=== PATIENT | male | born 1960 | race Caucasian/White ===

== ENCOUNTER 2018-06-12 07:45 | Outpatient (CLI) | payer BC ==
[2018-06-12] MEDS ORDERED: Iopamidol 370 76% 100 ML VIAL ONE (07:54)
--- NOTE | 2018-06-12 12:24 | CT ---
CT ANGIOGRAM ABDOMEN AND PELVIS WITH BILATERAL LOWER EXTREMITY RUNOFF WITH IV CONTRAST AND 3D MIP REC ONSTRUCTIONS: Date: 06/12/18 PROVIDED CLINICAL HISTORY: Abnormal ultrasound of the legs, claudication. FINDINGS: The visualized lung bases are free of significant opacity. Calcifications are noted in the pancreatic head compatible with sequelae of prior pancreatitis. The solid abdominal organs are suboptimally lucien luated in the arterial phase of contrast but demonstrate an otherwise unremarkable CT appearance. The re is no bowel dilatation, inflammatory fat stranding, free fluid, or lymph node enlargement apparent . A moderate to large left hydrocele is seen. The abdominal aorta appears nonaneurysmal. There is moderate multifocal soft and hard plaque involvin g the abdominal aorta, with some irregular soft plaque present at the lateral margin of the distal ab dominal aorta. There is no evidence for significant stenosis involving celiac, superior mesenteric, m ain, or left accessory renal or inferior mesenteric arteries. There is long segment calcified stenosi s involving the mid to distal right renal artery, at least moderate. There is ectasia of the proximal right common iliac artery measuring about 1.6 cm. There is prominent multifocal calcified and noncalcified atherosclerotic plaque involving both common iliac arteries wi th moderate distal stenosis on the right and several areas of moderate-severe stenosis involving the left distal common iliac artery. There is high grade stenosis involving the proximal left external il iac artery due to a combination of hard and soft plaque. There is calcified atherosclerotic plaque in volving proximal right external iliac artery without significant stenosis. Multifocal calcified steno ses involve each internal iliac artery. On the right, the common femoral and profunda femoral arteries demonstrate no significant stenosis. T here is a moderate calcified and noncalcified short segment stenosis involving the proximal right sup erficial femoral artery at the level of the lesser trochanter. No additional significant SFA stenosis is seen on the right. No significant popliteal stenosis is seen on the right. The right anterior tib ial and peroneal arteries appear opacified to the level of the ankle. The right posterior tibial vic ry is not opacified distal to the mid foreleg and is reconstituted by branches of the peroneal at the ankle. On the left, the common femoral, profunda femoral, and superficial femoral arteries demonstrate no si gnificant stenosis. Mild multifocal proximal stenosis involving left popliteal artery. The left anter ior tibial, posterior tibial, and peroneal arteries appear opacified to the level of the ankle. The a nterior tibial and posterior tibial arteries appear opacified to the level of the foot. IMPRESSION: 1. Extensive atherosclerotic vascular disease as described above. 2. Moderate left hydrocele. POS: DAVID
== END 2018-06-12 07:46 | disposition home or self-care (01) ==
LOC: CT 07:45
PROVIDERS: ATTEND Thoracic Surgery (Cardiothoracic Vascular Surgery)
DX: I70.213 Atherosclerosis of native arteries of extremities with intermittent claudication, bilateral legs (principal); N43.3 Hydrocele, unspecified
CPT/HCPCS: 75635